=== PATIENT | male | born 2000 | race Caucasian/White ===

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

== ENCOUNTER 2022-10-08 04:44 | Emergency (ER) | payer SELFPAY ==
[2022-10-08 04:46] VITALS: BP 140/87; PULSE 89; RESP 20; TEMP 37.1
--- NOTE | 2022-10-08 04:56 | ED.GENADUL_ITS ---
Discharge Plan Disposition Patient Disposition: Home Condition: Good Discharge Details Clinical Impression: Enteritis Primary Care Provider: Unknown,Unknown ED Provider: Adams Bansal Home Meds and New Rx's Prescriptions: No Action mupirocin 2 % ointment 1 applic topical TID Qty: 22 2RF cephalexin 500 mg capsule 500 mg PO TID Qty: 21 0RF Rx Instructions: gave him written rx to fill if more umbilical redness 12/26/20 No Known Home Meds Discharge Instructions Instructions: Enteritis (ED) Additional Instructions: At this time your CAT scan shows no evidence of appendicitis. Your laboratory work-up is very normal and reassuring. Please drink plenty of fluids, stay well-hydrated. Stick with a basic diet of crackers, rice, applesauce, and soup. Avoid any spicy foods, greasy foods, or tomato-based products. Take the Zofran only as needed for nausea. If you notice any worsening of your symptoms, or any new symptoms such as vomiting, diarrhea, fever, chills, shortness of breath, chest pain, numbness, weakness, or fainting , please return immediately to the emergency department for reevaluation. Please follow up with your primary care provider as soon as possible for reassessment and reevaluation. As always, it was a pleasure participating in your medical care today. Medical Decision Making This is a very pleasant 22-year-old male with a past medical history of sleep apnea, who presents today for feelings of headache, nausea, vomiting. Patient states that would week ago he developed lower dental pain, and then for the last week he has been taking 6 tablets of 500 mg Tylenol every 4 hours and 6 tablets of 200 mg ibuprofen every 4 hours. He notes that when he was working Friday through Friday he did not take any of these. Over the weekend though he did have these doses regularly, and then his family member recommended he stop that and so instead he started taking aspirin, 2 to 3 pills every 6 hours for the last 24 to 36 hours. It is currently 5 AM on Friday. He states that the dental pain has resolved, however he still has a mild headache, generalized abdominal achiness, and has been vomiting every few hours. He denies any diarrhea. He denies any blood in his stool. He denies any hematemesis. He denies any focal abdominal pain. He denies any intent to self- harm. He does admit to having notably darker colored urine yesterday, but it is lightened up after drinking notable amounts of water. No other complaints at this time. No other modifying factors. Physical exam demonstrates a well-appearing male, no focal abdominal tenderness. Mucous membranes are slightly dry, no periapical abscess. Symptoms appear inconsistent with an acute surgical abdomen. Differential at this time is concerning for acetaminophen overdose, ibuprofen overdose, but also potentially a viral etiology causing his symptoms. We will rehydrate, evaluate for these concerning etiologies, monitor closely and reassess. 1:36 AM Patient's laboratory work-up returned notably unremarkable, urinalysis normal, lipase normal, lactate electrolytes renal function salicylates acetaminophen levels are all normal. No signs of overdose or concerning abnormality. CT scan was ordered, shows evidence of enteritis but no appendicitis. On reassessment after 2 L of normal saline the patient is feeling much better and feels comfortable going home. Diagnosis mild gastroenteritis. Will give Zofran for home use. Discussed red flags for which to return. I have extensively reviewed the treatment plan and discharge instructions with the patient. I have addressed all patient concerns at this time. The patient was made aware of what symptoms to monitor for that would warrant a return to the emergency department. Discussed the plan with the patient, they demonstrate verbal understanding and agreement with our assessment and plan at this time. The documentation in this chart was dictated using [employer] dictation software. Please excuse any dictation errors. FINDINGS: Lungs: The visualized lung bases show no consolidation. Liver: The liver is normal in size. There are no enhancing liver masses. Gallbladder and bile ducts: No calcified gallstones identified. Pancreas: The pancreas is normal. Spleen: The spleen is top-normal in size measuring 12.7 cm in length. Adrenal glands: The adrenal glands are normal. Kidneys and ureters: There is no hydronephrosis. No renal or ureteral calculi are identified. Stomach and bowel: There is no evidence of small bowel or colonic obstruction. There are multiple, small bowel loops with mildly thickened oglesby consistent with enteritis (axial series 4, image 33; coronal series 6, image 46). There are prominent mesenteric vessels known as a comb sign, seen in enteritis (coronal series 6, image 48). Appendix: A normal appendix is identified (coronal series 6, image 52). Intraperitoneal space: No free air. No significant fluid collection. Vasculature: There is no abdominal aortic aneurysm. Lymph nodes: There are multiple nonenlarged, nonspecific mesenteric lymph nodes as large as 8 mm, likely reactive. Urinary bladder: The bladder shows a normal contour and is free of calcific opacities. Reproductive: Unremarkable as visualized. Bones/joints: No acute fracture. Soft tissues: Normal. IMPRESSION: 1. Normal appendix. 2. Findings consistent with infectious or inflammatory enteritis. Findings were discussed with ADAMS BANSAL at 10/08/2022 7:27 AM EST. Thank you for allowing us to participate in the care of your patient. Dictated and Authenticated by: Nino Taylor MD 10/08/2022 7:31 AM Eastern Time ([place] & [place] HPI General Date/Time Provider Initiated Documentation: 10/08/22 04:45 . HPI Narrative: This is a very pleasant 22-year-old male with a past medical history of sleep apnea, who presents today for feelings of headache, nausea, vomiting. Patient states that would week ago he developed lower dental pain, and then for the last week he has been taking 6 tablets of 500 mg Tylenol every 4 hours and 6 tablets of 200 mg ibuprofen every 4 hours. He notes that when he was working Friday through Friday he did not take any of these. Over the weekend though he did have these doses regularly, and then his family member recommended he stop that and so instead he started taking aspirin, 2 to 3 pills every 6 hours for the last 24 to 36 hours. It is currently 5 AM on Friday morning. He states that the dental pain has resolved, however he still has a mild headache, generalized abdominal achiness, and has been vomiting every few hours. He denies any diarrhea. He denies any blood in his stool. He denies any hematemesis. He denies any focal abdominal pain. He denies any intent to self- harm. He does admit to having notably darker colored urine yesterday, but it is lightened up after drinking notable amounts of water. No other complaints at this time. No other modifying factors. Related Data Home Medications Medication Instructions Recorded Confirmed Unknown [No Known Home Meds] 09/20/19 12/26/20 cephalexin 500 mg capsule 500 mg PO TID #21 caps 12/26/20 12/26/20 mupirocin 2 % topical ointment 1 applic topical TID #22 grams 12/26/20 12/26/20 Previous Rx's Medication Instructions Recorded cephalexin 500 mg capsule 500 mg PO TID #21 caps 12/26/20 mupirocin 2 % topical ointment 1 applic topical TID #22 grams 12/26/20 Allergies Allergy/AdvReac Type Severity Reaction Status Date / Time guaifenesin [From Robitussin] AdvReac makes him Verified 12/26/20 10:09 wired per mom General Stated Complaint: Abd Prob ARTURO: 3 Review of Systems All systems reviewed & are unremarkable except as noted in HPI and below PFSH All Active Problems (Updated 10/08/22 @ 07:34 by Adams Bansal DO) Enteritis (Acute) BMI,pediatric >= 95% (Acute 04/02/13) Umbilical discharge (Acute) Sleep apnea (Acute) cpap machine and raisning head of bed- has large tongue per ENT 2017/2018 Developmental reading disorder (Chronic 05/19/13) Headache (Chronic 05/19/13) has seen dr casey 2017 Routine child health exam (Acute 05/19/13) Medical History (Updated 10/08/22 @ 07:34 by Adams Bansal DO) Bronchitis Chronic headaches Dyslexia Generalized headaches Learning difficulty IEP Sleep apnea cpap machine Speech delay Surgical History Circumcision Meniscectomy Tonsillectomy and adenoidectomy Family History Mother Diabetes type 2, controlled Mental disorder anxiety Neoplasm breast cancer 2017 Father Essential hypertension Hyperlipidemia Grandparent Essential hypertension Neoplasm Social History Smoking/Tobacco Use Status: Never Second Hand Exposure: No Smoking risk assessment performed?: Yes Alcohol Intake: never Drug use: Daily Substance use type: marijuana Adopted: No Caregiver/Support person: Yes (Lives with Parents) Foster care: No Household members: family Number of Children: 0 number of grandchildren: 0 Education Level: high school Details: [employer] 12th grade Pets and animals: Yes Pets and animals: cat(s) and dog(s) Current gender identity: male Seatbelt use: sometimes Helmet use: Yes Helmet use: sometimes Water heater temp set <120 deg: Yes Working smoke detector in home: Yes Fire extinguisher in home: Yes Carbon monox detector in home: Yes Firearms in home: Yes Firearms unloaded and locked: Yes Do you feel safe at home: Yes Do you feel safe in your relationship?: Yes Exam Narrative Exam Narrative: 1.Const: Well-nourished, Well-developed, appearing stated age 2.Eyes: PERRL, no conjunctival injection, and symmetrical lids. 3.ENT: Atraumatic external nose and ears. dry MM. Neck: Symmetric, trachea midline, No thyromegaly. Mild dental caries. No periapical abscesses. 4.CVS: +S1/S2, No murmurs or gallops. Peripheral pulses 2+ and equal in all extremities. Brisk capillary refill in all extremities. 5.RESP: Unlabored respiratory effort. Clear to auscultation bilaterally. No wheezes rales or rhonchi 6.GI: Soft, Nontender/Nondistended, No hepatosplenomegaly. No guarding or rebound. No pain or McBurney's point, negative Howe sign. 7.MSK: Normocephalic/Atraumatic, Extremities w/o deformity or ttp No cyanosis or clubbing, Normal movement of all extremities 8.Skin: Warm, Dry. No rashes or lesions. 9.Neuro: electronic publishing specialist II-XII grossly intact. Sensation grossly intact, no focal neurologic deficits. 10.Psych: (AAO) x3. Appropriate mood and affect Course Vital Signs Vital signs: Vital Signs Temperature 37.1 C 10/08/22 04:46 Pulse 89 10/08/22 04:46 Respiratory Rate 10/08/22 04:46 Blood Pressure 140/87 10/08/22 04:46 Temperature 37.1 C 10/08/22 04:46 Temperature Source Tympanic 10/08/22 04:46 Pulse 89 10/08/22 04:46 Respiratory Rate 20 10/08/22 04:46 Blood Pressure 140/87 10/08/22 04:46 Blood Pressure Position Sitting 10/08/22 04:46 Oxygen Delivery Method Room Air 10/08/22 04:46 Oxygen Flow Rate 0 10/08/22 04:46
[2022-10-08 05:05] LABS: Abs Immature Grans 0.02 10^3/uL (0.0-0.06); Absolute Basophil Count 0.03 10^3/uL (0.0-0.2); Absolute Eosinophil Count 0.21 10^3/uL (0.0-0.7); Absolute Lymphocyte Count 1.03 10^3/uL (1.2-3.4); Absolute Monocyte Count 0.67 10^3/uL (0.1-0.8); Absolute Neutrophil Count 7.75 10^3/uL (1.2-6.7); Basophils % 0.3; Eosinophils % 2.2; HCT 46.4 % (40.0-50.0); HGB 16.3 g/dL (13.5-17.5); Immature Grans % 0.2; Lymphocytes % 10.6; MCH 30.4 pg (27.0-33.0); MCHC 35.1 % (32.0-36.0); MCV 87 fL (80-95); MPV 9.8 fL (8.0-11.0); Monocytes % 6.9; Neutrophils % 79.8; Platelet Count 231 10^3/uL (130-400); RBC 5.36 10^6/uL (4.36-5.78); RDW-SD 38.3 fL; WBC 9.71 10^3/uL (4.4-10.8)
[2022-10-08] MEDS: Normal Saline 1,000 ML 1000 ML IV ×2 (05:06→06:31)
[2022-10-08] MEDS: Ondansetron 4 MG/2 ML VIAL (05:06)
[2022-10-08 05:22] LABS: ALT 25 U/L (16-63); AST 19 U/L (15-37); Albumin 4.5 g/dL (3.4-5.0); Alkaline Phosphatase 96 U/L (46-116); Anion Gap 7.9 mmol/L (3-11); BUN 10 mg/dL (7-18); CO2 29.1 mmol/L (21.0-32.0); Calcium 9.1 mg/dL (8.5-10.1); Chloride 104 mmol/L (98-107); Estimated GFR 109.81 (mL/min/1.73m2); Glucose 98 mg/dL (74-106); Lipase 26 U/L (16-77); Potassium 3.6 mmol/L (3.5-5.1); Sodium 141 mmol/L (136-145); Total Protein 7.7 g/dL (6.4-8.2)
[2022-10-08 05:31] LABS: Acetaminophen < 2 ug/mL (10-30); Salicylate < 2.8 mg/dL (<2.8)
[2022-10-08 05:43] LABS: Bilirubin Negative (Negative); Blood Negative (Negative); Clarity Clear (Clear); Glucose Negative (Negative); Ketones Negative (Negative); Leukocyte Esterase Negative (Negative); Nitrite Negative (Negative); Specific Gravity 1.025 (1.005-1.025); Urobilinogen 0.2 EU/dL (Up TO 0.2)
--- NOTE | 2022-10-08 06:00 | DI.CT_ITS ---
Exam(s) CT ABDOMEN PELVIS W EXAM: CT ABDOMEN PELVIS W CLINICAL HISTORY: rlq pain, r/o appe TECHNIQUE: Imaging Protocol: Axial computed tomography images with coronal and sagittal reformatted images were created and reviewed CONTRAST MATERIAL: Intravenous: Omnipaque 350 Contrast volume:100 mL Oral: No COMPARISON: CT CT ABDOMEN PELVIS W from 05/19/2019 FINDINGS: ABDOMEN: Lung Bases: Normal where visualized. Liver: Normal density. No measurable mass. Portal, Superior Mesenteric, and Splenic Veins: Unremarkable. Gallbladder and Biliary Tract: No radiodense calculus or dilation. Pancreas: Normal density, no abnormal calcifications or inflammatory process. Spleen: Normal. Adrenals: No masses seen. Kidneys: Normal size, contour and axis. No radiodense stones or obstructive uropathy. No masses seen. Abdominal Aorta: Abdominal portion non-dilated. Bowel: There is no evidence of bowel obstruction. There is mild thickening of the oglesby of prox smal l bowel loops suggesting an infectious or inflammatory enteritis. Appendix is unremarkable. Peritoneal Cavity: No ascites, collection or mesenteric inflammatory response. No free air. Lymph Nodes: Mildly prominent mesenteric lymph nodes are seen. Bones: Within normal limits for the patient's age. Soft Tissues: Unremarkable. PELVIS: Bladder: Symmetric distention, no gross wall thickening. Reproductive Organs: Unremarkable as visualized. Lymph Nodes: Within normal limits. Bones: Within normal limits for the patient's age. IMPRESSION: 1. Findings suggestive of an infectious or inflammatory enteritis. 2. Normal appendix. RADIATION DOSE DELIVERED: 1,239.01mGy.cm Total DLP DATA REPOSITORY: All CT scans at this facility are submitted to the National Radiology Data Registry (NRDR) Dose Index Registry (DIR) with the [employer] (ACR). RADIATION OPTIMIZATION: All CT scans at this facility use at least one of these dose optimization te chniques: automated exposure control; mA and/or kV adjustment per patient size (includes targeted exa ms where dose is matched to clinical indication); or iterative reconstruction.
[2022-10-08] MEDS: Omnipaque 350 MG/ML 100 ML BTL IJ (06:25)
[2022-10-08] MEDS: Normal Saline - Diluent 50 ML VIAL IJ (06:26)
[2022-10-08] MEDS: MORPHine 4 MG/ML SYR IVP (06:30)
--- NOTE | 2022-10-08 07:31 | DI.VRAD_ITS ---
PROCEDURE INFORMATION: Exam: CT Abdomen And Pelvis With Contrast Exam date and time: 10/08/2022 6:24 AM Age: 22 years old Clinical indication: Abdominal pain; Localized; Right lower quadrant (rlq); Additional info: Rlq pain, R/O appe TECHNIQUE: Imaging protocol: Computed tomography of the abdomen and pelvis with contrast. Radiation optimization: All CT scans at this facility use at least one of these dose optimization techniques: automated exposure control; mA and/or kV adjustment per patient size (includes targeted exams where dose is matched to clinical indication); or iterative reconstruction. Contrast material: OMNI 350; Contrast volume: 100 ml; Contrast route: INTRAVENOUS (IV); COMPARISON: CT ABDOMEN PELVIS W 05/19/2019 8:28 AM FINDINGS: Lungs: The visualized lung bases show no consolidation. Liver: The liver is normal in size. There are no enhancing liver masses. Gallbladder and bile ducts: No calcified gallstones identified. Pancreas: The pancreas is normal. Spleen: The spleen is top-normal in size measuring 12.7 cm in length. Adrenal glands: The adrenal glands are normal. Kidneys and ureters: There is no hydronephrosis. No renal or ureteral calculi are identified. Stomach and bowel: There is no evidence of small bowel or colonic obstruction. There are multiple, small bowel loops with mildly thickened [place] consistent with enteritis (axial series 4, image 33; coronal series 6, image 46). There are prominent mesenteric vessels known as a comb sign, seen in enteritis (coronal series 6, image 48). Appendix: A normal appendix is identified (coronal series 6, image 52). Intraperitoneal space: No free air. No significant fluid collection. Vasculature: There is no abdominal aortic aneurysm. Lymph nodes: There are multiple nonenlarged, nonspecific mesenteric lymph nodes as large as 8 mm, likely reactive. Urinary bladder: The bladder shows a normal contour and is free of calcific opacities. Reproductive: Unremarkable as visualized. Bones/joints: No acute fracture. Soft tissues: Normal. IMPRESSION: 1. Normal appendix. 2. Findings consistent with infectious or inflammatory enteritis. Findings were discussed with BARI BANSAL at 10/08/2022 7:27 AM EST. Dictated and Authenticated by: Nino Taylor MD. Ordering:BOONE Lamas MD
== END 2022-10-08 07:53 | disposition home or self-care (01) ==
LOC: ER 07:47
PROVIDERS: Emergency Provider Student in an Organized Health Care Education/Training Program
DX: K52.9 Noninfective gastroenteritis and colitis, unspecified (principal); R51.9 Headache, unspecified; K02.9 Dental caries, unspecified
CPT/HCPCS: 36415; 80053; 83690; 96361; 96374; 99285; 74177; 80329; 81003; 83605; 85025; 99284; J2270; J2405; J3490